=== PATIENT | female | born 1955 | race Two or more races ===

== ENCOUNTER 2018-03-12 19:57 | Inpatient (IN) | payer MEDICARE ==
[~2018-03-12] VITALS: Ht 160 cm; Wt 67.1 kg
[~2018-03-12 19:57] MED LIST: ALBU0.633 IH; ARIP2TAB3 PO; BUSP10TA3 PO; DIVA-78 PO; DOXE50CA4 PO; LEVO112T7 PO; METO25TA6 PO; OMEP20TA5 PO
[2018-03-12 20:30] VITALS: BP 150/84
--- NOTE | 2018-03-12 20:35 | NUR ---
ADMITTED A 63 Y/O FEMALE FROM [facility]. PATIENT IS ON VOLUNTARY STATUS. PATIENT IS IRRITABLE, DELUSIONAL. PT SAYS SHE WILL GO TO [employer] PROGRAM THEN SHE WILL BE DISCHARGED, TO "DO JUSTICE". UPON FACE TO FACE EVALUATION, PATIENT APPEARED ALERT AND ORIENTED X 4, COOPERATIVE, ANXIOUS, NEEDY. NO SOB, NO COMPLAIN OF PAIN/DISCOMFORT AT THIS TIME, V/S STABLE, NO ACUTE DISTRESS NOTED. SKIN BODY ASSESSMENT DONE. SKIN CLEAR AND INTACT. MRSA DONE. PATIENT REFUSED TO SIGN PAPER WORKS. PATIENT IS UNDER THE CARE OF DR. JUDD FOR PSYCH AND DR. MCLEAN FOR MEDICAL. BOTH DOCTORS ARE AWARE OF THE ADMISSION. BELONGINGS CHECKED FOR CONTRABAND ITEMS. PUT IT IN SAFE LOCK CABINET. KEPT CLEAN, DRY AND COMFORTABLE AT ALL TIMES. ALL NEEDS ATTENDED & ANTICIPATED. WILL CONTINUE TO MONITOR Q15 MINS FOR SAFETY.
[2018-03-12] MEDS ORDERED: MAG HYDROX/AL HYDROX/SIMETH 30 ML UDC PO PRN (21:00)
[2018-03-12] MEDS ORDERED: MAGNESIUM HYDROXIDE 30 ML UDC PO PRN (21:00)
[2018-03-12] MEDS: ZOLPIDEM TARTRATE 5 MG TABLET PO PRN (22:28)
[2018-03-12] MEDS: LORAZEPAM 0.5 MG TABLET PO PRN (22:58)
[2018-03-13] MEDS ORDERED: ALBUTEROL FS 2.5 MG/3 ML VIAL.NEB NEB PRN ×2 (00:30→13:30)
[2018-03-13 01:41] VITALS: BP 150/84
[2018-03-13 08:00] VITALS: BP 116/63
[2018-03-13] MEDS ORDERED: DIVALPROEX SODIUM 500 MG TABLET.DR PO SCH (09:00)
[2018-03-13] MEDS: LEVOTHYROXINE SODIUM 112 MCG TABLET PO SCH (09:13)
[2018-03-13] MEDS: METOPROLOL TARTRATE 25 MG TABLET PO SCH ×2 (09:13→16:39)
[2018-03-13] MEDS ORDERED: DIVALPROEX SODIUM 125 MG TABLET.DR PO ONE (09:30)
[2018-03-13 10:14] LABS: BASOPHILS % (AUTO) 0.4 % (0.0-2.0); HEMATOCRIT 38 % (33-45); HEMOGLOBIN 12.6 g/dL (11.5-14.8); LYMPHOCYTES # (AUTO) 1.9 /CMM (0.8-4.8); LYMPHOCYTES % (AUTO) 20.4 % (20.0-44.0); MEAN CORPUSCULAR HGB CONC 34 g/dl (31.0-36.0); MEAN CORPUSCULAR VOLUME 90 fL (82-100); MONOCYTES % (AUTO) 10.2 % (2.0-12.0); NEUTROPHILS # (AUTO) 6.3 /CMM (1.8-8.9); PLATELET COUNT (AUTO) 298 /CMM (150-450); RDW COEFFICIENT OF VARIATION 13.5 (11.5-15.0); WHITE BLOOD COUNT (AUTO) 9.4 K/uL (4.3-11.0)
[2018-03-13 10:36] LABS: BILIRUBIN,TOTAL 0.3 mg/dL (0.2-1.0); CREATININE 0.9 mg/dL (0.6-1.3); POTASSIUM 3.6 mmol/L (3.5-5.1); TOTAL PROTEIN, SERUM 7.1 g/dL (6.4-8.2)
[2018-03-13 10:42] LABS: CHOLESTEROL 280 mg/dL (<200); HDL CHOLESTEROL 35 mg/dL (40-60); LDL 191 mg/dL (0-99); TRIGLYCERIDES 446 mg/dL (30-150)
[2018-03-13] MEDS: LORAZEPAM 0.5 MG TABLET PO PRN ×2 (10:47→22:41)
--- NOTE | 2018-03-13 10:47 | NUR ---
GPS/RN-NOTES PATIENT REQUESTING FOR ATIVAN. STATED" I NEED FOR MY ANXIETY". ATIVAN 1MG P.O GIVEN PRN ORDER. WILL CONT. MONITORING FOR SAFETY ND BEHAVIOR.
--- NOTE | 2018-03-13 11:45 | NUR ---
GPS/RN-NOTES PATIENT LYING IN HER BED,AWAKE ,CALM,NO ACUTE DISTRESS NOTED.
[2018-03-13] MEDS: QUETIAPINE FUMARATE 25 MG TABLET PO SCH ×3 (15:05→21:39)
[2018-03-13 16:00] VITALS: BP 129/72
[2018-03-13] MEDS: DIVALPROEX SODIUM 250 MG TABLET.DR PO SCH (16:38)
[2018-03-13] MEDS ORDERED: DIVALPROEX SODIUM 125 MG TABLET.DR PO SCH (17:00)
[2018-03-13 20:00] VITALS: BP 111/51
[2018-03-13] MEDS: ACETAMINOPHEN 325 MG TABLET PO PRN (20:09)
[2018-03-13] MEDS: ZOLPIDEM TARTRATE 5 MG TABLET PO PRN (21:39)
[2018-03-13] MEDS: DOXEPIN HCL (25 MG) 25 MG CAPSULE PO SCH (21:39)
[2018-03-14 08:15] VITALS: BP 104/53
[2018-03-14] MEDS: LEVOTHYROXINE SODIUM 112 MCG TABLET PO SCH (08:46)
[2018-03-14] MEDS: METOPROLOL TARTRATE 25 MG TABLET PO SCH ×2 (08:46→16:44)
[2018-03-14] MEDS: DIVALPROEX SODIUM 250 MG TABLET.DR PO SCH ×2 (08:46→16:44)
[2018-03-14] MEDS: PANTOPRAZOLE 40 MG TABLET.DR PO SCH (08:46)
[2018-03-14] MEDS: QUETIAPINE FUMARATE 25 MG TABLET PO SCH ×4 (08:46→21:17)
[2018-03-14 16:00] VITALS: BP 135/70
[2018-03-14 19:45] VITALS: BP 84/50
[2018-03-14] MEDS: DOXEPIN HCL (25 MG) 25 MG CAPSULE PO SCH (21:17)
[2018-03-14 23:00] VITALS: BP 103/68
[2018-03-15 08:00] VITALS: BP 100/70
[2018-03-15] MEDS: METOPROLOL TARTRATE 25 MG TABLET PO SCH ×2 (08:28→16:32)
[2018-03-15] MEDS: QUETIAPINE FUMARATE 25 MG TABLET PO SCH ×4 (08:28→20:54)
[2018-03-15] MEDS: PANTOPRAZOLE 40 MG TABLET.DR PO SCH (08:28)
[2018-03-15] MEDS: DIVALPROEX SODIUM 250 MG TABLET.DR PO SCH ×2 (08:28→16:33)
[2018-03-15] MEDS: LEVOTHYROXINE SODIUM 112 MCG TABLET PO SCH (08:28)
[2018-03-15 10:30] VITALS: BP 105/65
--- NOTE | 2018-03-15 10:30 | NUR ---
gps overflow transfer notes Received patient via ambulatory accompanied by 2 ICE GUARD SKATING RINK from GPS, on room air and tolerated well, no IV access. Verbally responsive and able to make needs known. Vital signs checked and recorded. No complaint of pain or discomfort. Noted paranoia and for constant monitoring. Call light with in patient reach, will continue to monitor accordingly.
[2018-03-15] MEDS: LORAZEPAM 0.5 MG TABLET PO PRN (13:16)
--- NOTE | 2018-03-15 15:19 | NUR ---
Initial Discharge Plan: Pt resides at [address] [place] [address] [address] [facility] [address]; by herself. SW will work to identify a support system for pt when discharge planning. SW will follow up. SW will help form a safe and proper discharge.
[2018-03-15 16:00] VITALS: BP 104/64
--- NOTE | 2018-03-15 19:01 | NUR ---
gps overflow rn closing notes All needs provided, attended, and anticipated, patient is in stable condition, endorsed to next shift RN to continue care. Call light with in patient reach.
--- NOTE | 2018-03-15 19:25 | NUR ---
RN NOTES: RECEIVED PT IN BED, A/O X3, ON RA DENIES ANY SOB, PT C/O NERVE PAIN REQUESTING FOR MEDICATION, NO IV ACCESS PER SAFETY, PT KEPT STATING SHE "WAS HELD HERE AGAINST HER WILL BY THE [employer]", ALSO COMPLAINING THAT HER FIXODENT WAS STOLEN FROM HER DRAWER AND THAT SHE CANNOT EAT PROPERLY. PT UNKEMPT, KEPT ASKING FOR FOOD. WILL CONTINUE MONITORING [id number] FOR SAFETY AND ANY CHANGES IN BEHAVIOR. SAFETY PRECAUTIONS FOR FALL INITIATED CALL LIGHT IN REACH.
[2018-03-15 19:42] VITALS: BP 91/55
[2018-03-15] MEDS: ACETAMINOPHEN 325 MG TABLET PO PRN (19:43)
--- NOTE | 2018-03-15 19:44 | NUR ---
prn tylenol: pt c./o generalized nerve pain she stated it huts 02/06 requesting for tylenol. prn tylenol 650 mg tab po administered to the pt at this time. will continue monitoring pt
[2018-03-15 20:00] VITALS: BP 91/55
--- NOTE | 2018-03-15 20:18 | NUR ---
RN NOTES: CONTACTED [facility] PATENT SOLICITOR REGARDING PT'S COMPLAINT OF UNCOMFORTABLE DENTURE, SHE'S REQUESTING FOR FIXODENT SOSHE CAN EAT PROPERLY, PER MD OKAY TO ORDER FIXODENT PRN, SPOKE TO PHARMACIST ALE.
[2018-03-15] MEDS: DOXEPIN HCL (25 MG) 25 MG CAPSULE PO SCH (22:00)
--- NOTE | 2018-03-16 00:03 | NUR ---
LATE ADMINISTRATION OF SINEQUAN: PT INITIALLY REFUSED FOR THE MEDICATION AT SCHEDULED TIME, JUST WOKE UP NOW, OFFERED THE MEDICINE AGAIN, AND PT AGREE TO TAKE IT NOW.
--- NOTE | 2018-03-16 05:00 | NUR ---
RN NOTES: PT REFUSED FOR BLOOD DRAW AT THIS TIME, TALKED TO VOICE DATA COMMUNICATIONS ENGINEER LUISITO TO PLEASE SEND ANOTHER STUDENT UNION CONSULTANT TO DRAW PT'S LAB AFTER BREAKFAST
--- NOTE | 2018-03-16 06:40 | NUR ---
RN CLOSING NOTES: PT REFUSING TO DO AM CARE, AWAKE, A/O X3, NO IV ACCESS PER GPS PROTOCOL. DENIES ANY SI OR PLAN OF HURTING HERSELF. PT ABLE TO SLEEP FOR A TOTAL OF 8.5 HRS. VS REMAINS STABLE, NEEDS ATTENDED, NO UNTOWARD EVENT HAPPENED THROUGHOUT THE SHIFT. SAFETY PRECAUTIONS MAINTAINED, WILL ENDORSE TO DAY RN FOR EDIL.
--- NOTE | 2018-03-16 07:20 | NUR ---
RN OPENING NOTE PATIENT IS RECEIVED IN BED AWAKE. ALERT AND ORIENTED X3. DENIES SOB. RESPIRATION REGULAR AND UNLABORED. DENIES PAIN. PATIENT VERBALIZED "I AM HEARING MY SISTER`S VOICES IN MY HEAD AND SHE IS SAYING SHE IS GOING TO KILL MY CHILDREN." PATIENT DENIES SUICIDAL IDEATION AT THIS TIME. PATIENT IS ENCOURAGED TO WATCH TV TO DIVERT HER ATTENTION FROM HEARING THE VOICES. ENCOURAGED TO PRESS THE CALL LIGHT FOR ASSISTANCE. BED LOW AND LOCKED. SIDE RAILS UP X2. CALL LIGHT WITHIN REACH. WILL CONTINUE TO MONITOR AND PROVIDE FREQUENT VISUAL CHECK.
[2018-03-16 08:00] VITALS: BP 136/72
[2018-03-16] MEDS: QUETIAPINE FUMARATE 25 MG TABLET PO SCH ×4 (08:13→20:29)
[2018-03-16] MEDS: PANTOPRAZOLE 40 MG TABLET.DR PO SCH (08:13)
[2018-03-16] MEDS: LEVOTHYROXINE SODIUM 112 MCG TABLET PO SCH (08:13)
[2018-03-16] MEDS: DIVALPROEX SODIUM 250 MG TABLET.DR PO SCH ×3 (08:13→16:16)
[2018-03-16] MEDS: METOPROLOL TARTRATE 25 MG TABLET PO SCH ×2 (08:13→16:18)
[2018-03-16] MEDS: ACETAMINOPHEN 325 MG TABLET PO PRN (13:35)
--- NOTE | 2018-03-16 15:20 | NUR ---
HARRIS received a call from pts daughter, Rosalie who identified as her support system. Pts daughter provided the following information; Dr. Michael , psychiatrist and Dr. Alonzo , polishing pad mounter in [place]. Pts daughter reports working to get her mother to move to the [facility]; where she resides in order, "to be close to her so I can help her more." Pts daughter reported pt having extensive psychiatric hospitalizations (4xs since 01/29/18). Per daughter, pt has a felon (i.e. arrested for fraud/theft). Pts daughter reports pt having been conserved in 2009, for 6 months only. Pts daughter provided [facility] and HARRIS Yip as a possible resource for pt going forward (
[2018-03-16 16:00] VITALS: BP 86/57
[2018-03-16] MEDS: FIXODENT 1 EA TUBE MM PRN (16:17)
[2018-03-16 17:28] VITALS: BP 101/64
--- NOTE | 2018-03-16 17:32 | NUR ---
RN CLOSING NOTE PATIENT ALERT AND ORIENTED X3. DENIES SOB, DENIES PAIN AT THIS TIME. RESPIRATION EVEN AND UNLABORED. PATIENT IN NO APPARENT DISTRESS. HOWEVER THE PATIENT STILL HEAR VOICES OF HER SISTER. THE PATIENT STATED THAT " SHE IS JUST TALKING ABOUT OUT PAST, CHILDHOOD." PATIENT DENIES SI, HI. PATIENT CALM. BED LOW AND LOCKED. SIDE RAILS UP X2. CALL LIGHT WITHIN REACH. WILL ENDORSE TO INSTRUMENTS SALES REPRESENTATIVE.
[2018-03-16] MEDS: LORAZEPAM 0.5 MG TABLET PO PRN (17:43)
--- NOTE | 2018-03-16 18:20 | NUR ---
MS/RN NOTE PATIENT WAS TRANSFERRED TO [address] [place] [address] AND REPORT WAS GIVEN TO JULIO.
[2018-03-16 19:46] VITALS: BP 139/83
[2018-03-16] MEDS: DOXEPIN HCL (25 MG) 25 MG CAPSULE PO SCH (21:17)
[2018-03-17] MEDS: LEVOTHYROXINE SODIUM 112 MCG TABLET PO SCH (08:25)
[2018-03-17] MEDS: DIVALPROEX SODIUM 250 MG TABLET.DR PO SCH ×3 (08:26→16:22)
[2018-03-17] MEDS: PANTOPRAZOLE 40 MG TABLET.DR PO SCH (08:26)
[2018-03-17] MEDS: QUETIAPINE FUMARATE 25 MG TABLET PO SCH ×3 (08:26→16:22)
[2018-03-17] MEDS: METOPROLOL TARTRATE 25 MG TABLET PO SCH ×2 (08:31→16:22)
[2018-03-17 08:46] VITALS: BP 100/50
[2018-03-17] MEDS: LORAZEPAM 0.5 MG TABLET PO PRN (12:49)
[2018-03-17] MEDS: FIXODENT 1 EA TUBE MM PRN (12:51)
--- NOTE | 2018-03-17 14:29 | NUR ---
HARRIS faxed inquiry to [facility], [address] [address]; and fax # , jere Burgess for discharge planning purposes.
[2018-03-17 16:00] VITALS: BP 104/58
[2018-03-17 20:01] VITALS: BP 91/78
[2018-03-17] MEDS: QUETIAPINE FUMARATE 100 MG TABLET PO SCH (21:28)
[2018-03-17] MEDS: DOXEPIN HCL (25 MG) 25 MG CAPSULE PO SCH (21:28)
[2018-03-18] MEDS ORDERED: LORAZEPAM 0.5 MG TABLET ONE (04:55)
[2018-03-18] MEDS: LORAZEPAM 0.5 MG TABLET PO PRN ×3 (04:58→22:57)
--- NOTE | 2018-03-18 04:58 | NUR ---
GPS RN NOTES: PATIENT IS ANXIOUS AND RESTLESS, PATIENT IS REQUESTING FOR ATIVAN. VSS. ADMINISTERED ATIVAN 1MG PO ORDERED. WILL CONTINUE TO MONITOR [id number] FOR SAFETY AND BEHAVIOR.
[2018-03-18 08:48] VITALS: BP 99/60
[2018-03-18] MEDS: DIVALPROEX SODIUM 250 MG TABLET.DR PO SCH ×3 (08:59→16:26)
[2018-03-18] MEDS: METOPROLOL TARTRATE 25 MG TABLET PO SCH ×2 (08:59→16:26)
[2018-03-18] MEDS: PANTOPRAZOLE 40 MG TABLET.DR PO SCH (08:59)
[2018-03-18] MEDS: LEVOTHYROXINE SODIUM 112 MCG TABLET PO SCH (08:59)
[2018-03-18] MEDS: QUETIAPINE FUMARATE 25 MG TABLET PO SCH ×2 (09:06→16:26)
[2018-03-18] MEDS: FIXODENT 1 EA TUBE MM PRN (11:03)
[2018-03-18] MEDS: ACETAMINOPHEN 325 MG TABLET PO PRN (11:03)
[2018-03-18 16:00] VITALS: BP 101/66
[2018-03-18 20:00] VITALS: BP 125/70
[2018-03-18] MEDS: QUETIAPINE FUMARATE 100 MG TABLET PO SCH (21:14)
[2018-03-18] MEDS: DOXEPIN HCL (25 MG) 25 MG CAPSULE PO SCH (21:14)
--- NOTE | 2018-03-18 23:00 | NUR ---
ms/rn notes patient is alert and oriented. Anxious and agitated. medicated with ativan 1 mg po as ordered. with good results. Fall precautions rendered. continue to monitor patient.
[2018-03-19 08:00] VITALS: BP 133/64
[2018-03-19] MEDS: PANTOPRAZOLE 40 MG TABLET.DR PO SCH (08:18)
[2018-03-19] MEDS: DIVALPROEX SODIUM 250 MG TABLET.DR PO SCH ×3 (08:19→16:59)
[2018-03-19] MEDS: QUETIAPINE FUMARATE 25 MG TABLET PO SCH ×2 (08:19→16:59)
[2018-03-19] MEDS: METOPROLOL TARTRATE 25 MG TABLET PO SCH ×2 (08:19→16:59)
[2018-03-19] MEDS: LEVOTHYROXINE SODIUM 112 MCG TABLET PO SCH (08:19)
--- NOTE | 2018-03-19 11:31 | NUR ---
SW received a call from pts daughter informing of pts pending eviction from her apartment (i.e. if rent payment was not received). SW was informed by pts daughter that pt did not want to talk to her. SW offered to call daughter back (with pt in the room and her consent). Pt however, refused stating, "I don't want to talk to her, she just yells at me." Pt also stated that going forward, she did not want talk to her daughter. SW called pts daughter back to provide her with an update however was unable to reach her (i.e. no one answered the phone).
--- NOTE | 2018-03-19 11:40 | NUR ---
HARRIS received confirmation from Laura from [facility], [address] [place] [address]. [place] [id number]; of pts acceptance. HARRIS will inform pt.
[2018-03-19 16:01] VITALS: BP 96/60
[2018-03-19 20:00] VITALS: BP 119/56
[2018-03-19] MEDS: QUETIAPINE FUMARATE 100 MG TABLET PO SCH (22:00)
[2018-03-19] MEDS: DOXEPIN HCL (25 MG) 25 MG CAPSULE PO SCH (22:00)
--- NOTE | 2018-03-19 22:18 | NUR ---
GPS RN NOTE: SEROQUEL 100 MG AND SINEQUAN 50MG HELD D/T LOW BP 90/51 P 67. WILL CONTINUE TO MONITOR [id number] FOR SAFETY
[2018-03-20] MEDS: ACETAMINOPHEN 325 MG TABLET PO PRN (01:40)
[2018-03-20] MEDS: ZOLPIDEM TARTRATE 5 MG TABLET PO PRN ×2 (01:40→23:50)
--- NOTE | 2018-03-20 01:41 | NUR ---
GPS RN NOTE: PATIENT REQUESTED SLEEPING PILL AND PAIN MEDICATION. V/S BP121/78 P78 R=20, AMBIEN 5MG PO GIVEN FOR INABILITY TO SLEEP. TYLENOL 650MG PO GIVEN FOR 3/10 GENERAL BODY PAIN. WILL CONTINUE TO MONITOR [id number] FOR SAFETY
[2018-03-20 08:27] VITALS: BP 95/56
[2018-03-20] MEDS: METOPROLOL TARTRATE 25 MG TABLET PO SCH ×2 (08:42→16:51)
[2018-03-20] MEDS: DIVALPROEX SODIUM 250 MG TABLET.DR PO SCH ×3 (08:44→16:53)
[2018-03-20] MEDS: LEVOTHYROXINE SODIUM 112 MCG TABLET PO SCH (08:44)
[2018-03-20] MEDS: PANTOPRAZOLE 40 MG TABLET.DR PO SCH (08:45)
[2018-03-20] MEDS: QUETIAPINE FUMARATE 25 MG TABLET PO SCH ×2 (09:13→16:53)
[2018-03-20] MEDS: clonazePAM 0.5 MG TABLET PO PRN (12:52)
[2018-03-20 16:00] VITALS: BP 109/55
[2018-03-20 20:00] VITALS: BP 123/71
[2018-03-20] MEDS: QUETIAPINE FUMARATE 100 MG TABLET PO SCH (22:47)
[2018-03-20] MEDS: DOXEPIN HCL (25 MG) 25 MG CAPSULE PO SCH (22:47)
[2018-03-21 08:00] VITALS: BP 100/63
[2018-03-21] MEDS: LEVOTHYROXINE SODIUM 112 MCG TABLET PO SCH (08:37)
[2018-03-21] MEDS: DIVALPROEX SODIUM 250 MG TABLET.DR PO SCH ×3 (08:37→16:39)
[2018-03-21] MEDS: PANTOPRAZOLE 40 MG TABLET.DR PO SCH (08:37)
[2018-03-21] MEDS: QUETIAPINE FUMARATE 25 MG TABLET PO SCH ×2 (08:37→16:39)
[2018-03-21] MEDS: METOPROLOL TARTRATE 25 MG TABLET PO SCH ×2 (08:38→16:09)
[2018-03-21] MEDS: clonazePAM 0.5 MG TABLET PO PRN (12:50)
[2018-03-21 16:00] VITALS: BP 91/51
[2018-03-21 20:44] VITALS: BP 99/50
[2018-03-21] MEDS: DOXEPIN HCL (25 MG) 25 MG CAPSULE PO SCH (21:35)
[2018-03-21] MEDS: QUETIAPINE FUMARATE 100 MG TABLET PO SCH (21:35)
[2018-03-21] MEDS: ZOLPIDEM TARTRATE 5 MG TABLET PO PRN (21:36)
--- NOTE | 2018-03-21 21:36 | NUR ---
GPS RN NOTE: ambien 5mg po given for inability to sleep. V/s Bp125/68 p=87 r20. Will continue to monitor [id number] for safety
[2018-03-22] MEDS: clonazePAM 0.5 MG TABLET PO PRN ×2 (03:53→11:14)
[2018-03-22] MEDS: PANTOPRAZOLE 40 MG TABLET.DR PO SCH (07:49)
[2018-03-22 08:11] VITALS: BP 100/59
[2018-03-22] MEDS: METOPROLOL TARTRATE 25 MG TABLET PO SCH ×2 (09:00→17:00)
[2018-03-22] MEDS: QUETIAPINE FUMARATE 25 MG TABLET PO SCH ×2 (09:04→17:13)
[2018-03-22] MEDS: LEVOTHYROXINE SODIUM 112 MCG TABLET PO SCH (09:05)
[2018-03-22] MEDS: DIVALPROEX SODIUM 250 MG TABLET.DR PO SCH ×3 (09:05→17:13)
[2018-03-22] MEDS: ACETAMINOPHEN 325 MG TABLET PO PRN (09:18)
--- NOTE | 2018-03-22 11:42 | NUR ---
SW informed pt of her acceptance to [facility], [address] [place] [address]. [facility] [address]; and pt stated, "I'm not going." SW will follow up to ensure pt is safely and adequately discharged.
[2018-03-22 16:16] VITALS: BP_SYST 102; BP_SYST 122; BP_DIAS 63; BP_DIAS 78
--- NOTE | 2018-03-22 19:30 | NUR ---
GPS RN NOTE, RECEIVED PATIENT AWAKE AND IN BED, PATIENT HAS NO COMPLAINTS OR S/S OF PAIN AT THIS TIME. PATIENT IS DISPLAYING NO S/S OF APPARENT DISTRESS AT THIS TIME. PATIENT BREATHING IS UNLABORED WITH EQUAL RISE AND FALL OF THE CHEST. PATIENT IS ALERT AND ORIENTED X 3 ON ROOM AIR WITH A SPO2 OF 96%. PATIENT IS COMPLIANT WITH MEDICATION, ANXIOUS AT TIMES, PARANOID, RESPONDING TO INTERNAL STIMULI, COOPERATIVE, AND NEEDS REORIENTATION. PATIENT DENIES SUICIDE IDEATIONS AND HOMICIDAL IDEATIONS AT THIS TIME. PATIENT ASSISTED WITH TURNING AND REPOSITIONING Q2HR AND PRN FOR COMFORT AND CIRCULATION. PATIENT HAS NO NEEDS AT THIS TIME. PATIENT EDUCATED ON THE USE OF THE CALL BRODERICK. PATIENT SIDE RAILS ARE UP X 2, BED IS LOCKED AND LOW, AND I WILL CONTINUE TO MONITOR THIS PATIENT Q 15 MIN WITH THE HELP OF STAFF.
[2018-03-22 20:23] VITALS: BP 105/69
[2018-03-22] MEDS: DOXEPIN HCL (25 MG) 25 MG CAPSULE PO SCH (21:27)
[2018-03-22] MEDS: QUETIAPINE FUMARATE 100 MG TABLET PO SCH (21:27)
[2018-03-22] MEDS: ZOLPIDEM TARTRATE 5 MG TABLET PO PRN (22:45)
--- NOTE | 2018-03-22 22:45 | NUR ---
GPS RN NOTE, PATIENT HAS A COMPLAINT OF NOT BEING ABLE TO SLEEP AND IS REQUESTING AMBIEN AT THIS TIME. PATIENT VITAL SIGNS ARE STABLE. GAVE AMBIEN 5MG PO HS ORDERED. WILL REASSESS FOR INSOMNIA AND I WILL CONTINUE TO MONITOR THIS PATIENT.
[2018-03-23 08:00] VITALS: BP 122/57
[2018-03-23] MEDS: QUETIAPINE FUMARATE 25 MG TABLET PO SCH ×3 (08:31→16:31)
[2018-03-23] MEDS: DIVALPROEX SODIUM 250 MG TABLET.DR PO SCH ×3 (08:31→16:30)
[2018-03-23] MEDS: LEVOTHYROXINE SODIUM 112 MCG TABLET PO SCH (08:31)
[2018-03-23] MEDS: PANTOPRAZOLE 40 MG TABLET.DR PO SCH (08:31)
[2018-03-23] MEDS: METOPROLOL TARTRATE 25 MG TABLET PO SCH ×2 (08:32→16:31)
[2018-03-23] MEDS ORDERED: hydrOXYzine PAMOATE 50 MG CAPSULE PO PRN (11:00)
--- NOTE | 2018-03-23 11:44 | NUR ---
HARRIS contacted pts daughter, Rosalie to inform her of pts discharge plan to [facility], [address] [place] [address]. [place] [address]; . Rosalie was upset about pts transfer to [facility] demanding for pt to be placed closer to her home. HARRIS discussed having faxed various SNF and [facility] having responded with acceptance. Pts daughter was angry about pt not being conserved and demanded to speak to Cytogenetics Laboratory Manager. HARRIS provided pts daughter with Sandra Pradhan's contact information.
--- NOTE | 2018-03-23 11:52 | NUR ---
HARRIS informed [facility], [address] [place] [address]. [place] [phone]; that pt would not be discharging to their facility on this date per Dr. Barfield. HARRIS cancelled ambulance (trip # [id number]) scheduled for 1:00pm.
[2018-03-23] MEDS ORDERED: hydrOXYzine PAMOATE 25 MG CAPSULE PO PRN (13:00)
--- NOTE | 2018-03-23 13:46 | NUR ---
ALEIDA spoke to Talia from [facility] Public [facility] to follow up on pt conservatorship, per Dr. Barfield request. ALEIDA was provided with the following information; Intake Dept. Delphine Bennett . Aleida contacted Intake dept and left a message. ALEIDA will follow up.
--- NOTE | 2018-03-23 13:56 | NUR ---
HARRIS faxed inquiry to [facility], [address] [facility], [place] [address]; and fax# on this date. HARRIS will follow up.
[2018-03-23 16:00] VITALS: BP 102/54
[2018-03-23 20:34] VITALS: BP 102/72
[2018-03-23] MEDS: QUETIAPINE FUMARATE 100 MG TABLET PO SCH (21:02)
[2018-03-23] MEDS: DOXEPIN HCL (25 MG) 25 MG CAPSULE PO SCH (21:02)
[2018-03-23] MEDS: ZOLPIDEM TARTRATE 5 MG TABLET PO PRN (21:58)
[2018-03-24 08:00] VITALS: BP 100/65
[2018-03-24] MEDS: LEVOTHYROXINE SODIUM 112 MCG TABLET PO SCH (08:30)
[2018-03-24] MEDS: DIVALPROEX SODIUM 250 MG TABLET.DR PO SCH ×3 (08:31→17:27)
[2018-03-24] MEDS: PANTOPRAZOLE 40 MG TABLET.DR PO SCH (08:31)
[2018-03-24] MEDS: METOPROLOL TARTRATE 25 MG TABLET PO SCH ×2 (08:31→17:00)
[2018-03-24] MEDS: QUETIAPINE FUMARATE 25 MG TABLET PO SCH ×2 (08:31→13:02)
[2018-03-24 10:06] LABS: CALCIUM, SERUM 9.1 mg/dL (8.5-10.1); CREATININE 0.8 mg/dL (0.6-1.3); POTASSIUM 4.1 mmol/L (3.5-5.1)
[2018-03-24 10:09] LABS: BASOPHILS % (AUTO) 0.5 % (0.0-2.0); EOSINOPHILS % (AUTO) 2.2 % (0.0-6.0); HEMATOCRIT 37 % (33-45); HEMOGLOBIN 12.3 g/dL (11.5-14.8); LYMPHOCYTES # (AUTO) 2.6 /CMM (0.8-4.8); LYMPHOCYTES % (AUTO) 34.3 % (20.0-44.0); MEAN CORPUSCULAR HGB CONC 33 g/dl (31.0-36.0); MEAN CORPUSCULAR VOLUME 91 fL (82-100); MONOCYTES # (AUTO) 0.9 /CMM (0.1-1.30); MONOCYTES % (AUTO) 12.4 % (2.0-12.0); NEUTROPHILS # (AUTO) 3.8 /CMM (1.8-8.9); NEUTROPHILS % (AUTO) 50.6 % (43.0-81.0); PLATELET COUNT (AUTO) 306 /CMM (150-450); RDW COEFFICIENT OF VARIATION 13.9 (11.5-15.0); RED BLOOD CELL COUNT(AUTO) 4.13 MIL/uL (4.0-5.2); WHITE BLOOD COUNT (AUTO) 7.6 K/uL (4.3-11.0)
[2018-03-24] MEDS: ACETAMINOPHEN 325 MG TABLET PO PRN (11:15)
--- NOTE | 2018-03-24 11:15 | NUR ---
med. x 1 with for generalized discomfort with tylenol 650 mg po.
--- NOTE | 2018-03-24 12:19 | NUR ---
HARRIS called Intake Dept. Delphine Bennett on this date and left a message requesting a callback. HARRIS will follow up.
[2018-03-24 16:00] VITALS: BP 105/70
[2018-03-24] MEDS: QUETIAPINE FUMARATE 100 MG TABLET PO SCH ×2 (17:27→21:33)
[2018-03-24 20:41] VITALS: BP 96/63
[2018-03-24] MEDS: DOXEPIN HCL (25 MG) 25 MG CAPSULE PO SCH (21:33)
[2018-03-24] MEDS: ZOLPIDEM TARTRATE 5 MG TABLET PO PRN (23:02)
[2018-03-25] MEDS: QUETIAPINE FUMARATE 100 MG TABLET PO SCH ×3 (08:24→21:24)
[2018-03-25] MEDS: PANTOPRAZOLE 40 MG TABLET.DR PO SCH (08:24)
[2018-03-25] MEDS: METOPROLOL TARTRATE 25 MG TABLET PO SCH ×2 (08:25→16:50)
[2018-03-25] MEDS: DIVALPROEX SODIUM 250 MG TABLET.DR PO SCH ×3 (08:25→17:04)
[2018-03-25] MEDS: LEVOTHYROXINE SODIUM 112 MCG TABLET PO SCH (08:26)
[2018-03-25 08:39] VITALS: BP 100/50
--- NOTE | 2018-03-25 09:00 | NUR ---
GPS/RN HELD METOPROLOL 25 MG DUE TO DECREASED BP OF 100/50. PATIENT IS ALERT, WALKING, TALKING, NO S/S OF DISTRESS. WILL CONTINUE TO MONITOR
--- NOTE | 2018-03-25 12:30 | NUR ---
HARRIS called [facility], , per pt request and spoke to Deb, Systems Lead who confirmed pt still had an apartment to return to. Per Deb, pts daughter Rosalie paid her rent. HARRIS inquired about living conditions in the home and per Deb she is unaware, stating "We are not allowed to go into her home and she could live any way she wants to live." HARRIS asked if there was a referral to a cleaning co. that could be provided to pt and or arrangements made per pt request. Deb agreed to discuss with her Machine Operations Supervisor and call back, however Deb stated that, "those are arrangements she would have to make on her own, we don't do that."
--- NOTE | 2018-03-25 12:39 | NUR ---
F/U on referrals provided by pts daughter, Rosalie: [facility] (# is to [facility]) and HARRIS Yip , HARRIS left 2 messages and has not received a callback.
--- NOTE | 2018-03-25 12:42 | NUR ---
HARRIS called [facility] Public [facility] and spoke Gilda, [place] [facility] to follow up on process regarding pt conservatorship, per Dr. Barfield request (can pt be conserved while on an voluntary status, can [facility] pt be conserved while in [facility] and # of hospitalizations per yr. qualifier). HARRIS was informed by Gilda that she did not have the answers but will inquire and call back. HARRIS will follow up.
--- NOTE | 2018-03-25 15:39 | NUR ---
SW spoke to pts daughter to provide her with an update regarding conservatorship. SW informed pts daughter that pt would be discharging tomorrow, to her home. SW will follow up to ensure pt is safely and adequately discharged.
--- NOTE | 2018-03-25 15:43 | NUR ---
HARRIS contacted pts psychiatrist, Dr. Frankie Michael to schedule a follow up appointment for pt once she is discharged from the hospital. HARRIS left a message.
--- NOTE | 2018-03-25 15:48 | NUR ---
HARRIS inquired about pre arranged transportation services for pt once she discharged from [facility]. Per, GG none were noted at the time of intake, however following contacts were provided for F/U: [facility] Both referrals were contacted and message was left.
[2018-03-25 16:31] VITALS: BP 95/55
--- NOTE | 2018-03-25 16:51 | NUR ---
GPS/RN HELD METOPROLOL 25 MG DUE TO DECREASED BP OF 99/55. PATIENT IS ALERT, WALKING, TALKING, NO S/S OF DISTRESS. WILL CONTINUE TO MONITOR
--- NOTE | 2018-03-25 17:03 | NUR ---
GPS/RN HELD SEROQUEL 100 MG DUE TO DECREASED BP OF 99/55. PATIENT IS ALERT, WALKING, TALKING, NO S/S OF DISTRESS. WILL CONTINUE TO MONITOR
[2018-03-25 20:00] VITALS: BP 102/52
[2018-03-25] MEDS: DOXEPIN HCL (25 MG) 25 MG CAPSULE PO SCH (21:24)
[2018-03-25] MEDS: ZOLPIDEM TARTRATE 5 MG TABLET PO PRN (22:38)
[2018-03-26] MEDS: LEVOTHYROXINE SODIUM 112 MCG TABLET PO SCH (08:30)
[2018-03-26] MEDS: QUETIAPINE FUMARATE 100 MG TABLET PO SCH (08:30)
[2018-03-26] MEDS: PANTOPRAZOLE 40 MG TABLET.DR PO SCH (08:30)
[2018-03-26] MEDS: DIVALPROEX SODIUM 250 MG TABLET.DR PO SCH ×2 (08:30→13:04)
[2018-03-26] MEDS: METOPROLOL TARTRATE 25 MG TABLET PO SCH (08:31)
[2018-03-26 08:38] VITALS: BP 126/61
--- NOTE | 2018-03-26 09:29 | NUR ---
HARRIS contacted pts daughter, Rosalie to inform her of pts discharge plan on this date; which she was in agreement. HARRIS also called [facility], and left a message for Angelica and or any other SW of pts discharge plan on this date. SW left contact information in the event they needed clarity and or had any questions.
--- NOTE | 2018-03-26 11:45 | NUR ---
HARRIS received a call back from Phi, Lead Javascript Developer for [facility] who stated having referred pt to the [facility], court mandated program that provides mental health services. Per reports efforts were made (about 3/4 months) to reach out to pt in order to enroll her in MH services with no success. HARRIS was provided with Maricruz Dominguez contact , [facility]. HARRIS called Ms. Tyler and informed her, via voicemail that pt would be discharging on today's date from [facility]. HARRIS also left contact information in the event additional information was needed.
--- NOTE | 2018-03-26 12:20 | NUR ---
APS Report: SW called [facility] APS and spoke to Tabathachetan Seymour, Officer of the Day to file a report based on information disclosed by pt regarding her living conditions (i.e. apartment/safety concerns). Per Ms. Seymour a report was filed however not acted on "because pt met the social professionals in the hospital." However as a result of pt being discharged on this date a SW will be sent out to inspect pts home. Per Dawn, no report # was generated "because we don't have a system for that as Officer of the day." SW left contact information.
--- NOTE | 2018-03-26 13:15 | NUR ---
GPS/RN-NOTES PATIENT WAS DISCHARGE TO HOME TODAY. AND EXHAUST AND MUFFLER REPAIRER ANA AWARE AND AGREES OF PATIENT DISCHARGE WITH ORDERS. PATIENT DID NOT VERBALIZE SI/HI,DENIES VISUAL/AUDITORY HALLUCINATIONS AT THE TIME OF DISCHARGE. PATIENT DAUGHTER MELIZA ( [phone]) MADE AWARE BY THE LOCATOR. ALL DISCHARGE MEDICATIONS WAS REVIEWED WITH THE PATIENT WITH UNDERSTANDING, RX WAS GIVEN TO HER .PATIENT REFUSED TO SIGN HER DISCHARGE PAPERS. PATIENT LEFT THE UNIT IN STABLE CONDITION ALERT, ORIENTED X4,AMBULATORY WITH STEADY GAIT.PATIENT WAS PATROL OFFICER BY [employer] ( [employer]) .PATIENT LEFT THE UNIT WITH ALL HER BELONGINGS.
--- NOTE | 2018-03-26 14:06 | NUR ---
Discharge Plan: Patient will discharge home, [address] [place] [address]; via [employer], at 1:00pm. Pt has been notified of her discharge plan. Pts daughter, Rosalie was also notified and is in agreement. Pt was encouraged to follow up with her following providers: Psychiatrist: Dr. Frankie Michael, [address] [facility]. [facility] [address]; and Contracts Paralegal: Dr. Alonzo, [address] [facility] [address]; .
== END 2018-03-26 13:10 | disposition home or self-care (01) | DRG 885 ==
LOC: GPS 19:57 → GPSOV2 03-15 10:18 → GPS 03-16 18:11
PROVIDERS: ADMIT Psychiatry & Neurology Psychiatry; ATTEND Internal Medicine
DX: F25.0 Schizoaffective disorder, bipolar type (principal); F29 Unspecified psychosis not due to a substance or known physiological condition; E03.9 Hypothyroidism, unspecified; F41.9 Anxiety disorder, unspecified; I10 Essential (primary) hypertension; Z73.6 Limitation of activities due to disability; J45.909 Unspecified asthma, uncomplicated; K21.9 Gastro-esophageal reflux disease without esophagitis
CPT/HCPCS: 36415; 80048-TC; 80053-TC; 80061-TC; 80164-TC; 85025-TC; 87081-TC; Q0177; Z7610